=== PATIENT | female | born 1995 | race Caucasian/White ===

== ENCOUNTER 2018-01-24 10:45 | Emergency (ER) | payer OTHER ==
[~2018-01-24] VITALS: Ht 165.1 cm; Wt 63.5 kg
== END 2018-01-24 13:16 | disposition home or self-care (01) ==
LOC: EDBD 10:45 → ER 10:45
DX: S61.227A Laceration with foreign body of left little finger without damage to nail, initial encounter (principal); W45.8XXA Other foreign body or object entering through skin, initial encounter; Y93.89 Activity, other specified; Y92.69 Other specified industrial and construction area as the place of occurrence of the external cause; Y99.8 Other external cause status

== ENCOUNTER 2024-07-09 15:38 | Outpatient (CLI) | payer OTHER | END 2024-07-09 15:52 | disposition home or self-care (01) | LOC: RAD 15:38 | DX: S69.91XA Unspecified injury of right wrist, hand and finger(s), initial encounter (principal) ==